=== PATIENT | female | born 1970 | race Caucasian/White ===

== ENCOUNTER 2016-12-25 08:41 | Emergency (ER) | payer MEDICARE, MEDICAID ==
[2016-12-25 09:06] VITALS: BP 157/74
--- NOTE | 2016-12-25 09:07 | UC ---
Ear Complaint HPI - HPI Summary HPI Summary: left ear pain gradual onset for past 2 weeks. Intermittent at first, now a constant pain. Slight drainage from left ear. Recent mild sinus congestion, no fevers. No trauma to ear. She also has a history of trigeminal neuralgia on this side, but that has been a different, lancinating pain whereas this current pain is dull and constant. - History of Current Complaint Chief Complaint: UCEar Stated Complaint: LEFT EAR PAIN Time Seen by Provider: 12/25/16 08:42 Hx Obtained From: Patient Hx Last Menstrual Period: 12/20/16 Onset/Duration: Gradual Onset, Lasting Weeks - 2 Severity Initially: Mild Severity Currently: Moderate Aggravating Factors: Nothing Alleviating Factors: Heat - Allergies/Home Medications Allergies/Adverse Reactions: Allergies Allergy/AdvReac Type Severity Reaction Status Date / Time environmental Allergy Eyes Uncoded 12/25/16 08:52 Itchy/Swollen/Red/Watery Home Medications: Home Medications Zolpidem TAB* [Ambien*] 5 mg PO BEDTIME PRN 12/25/16 [History Confirmed 12/25/16 ] traZODone TAB* [Desyrel TAB*] 50 mg PO BEDTIME PRN 12/25/16 [History Confirmed 12/25/16] PMH/Surg Hx/FS Hx/Imm Hx - Additional Past Medical History Additional PMH: trigeminal neuralgia Endocrine History Of: Denies: Diabetes, Thyroid Disease Cardiovascular History Of: Denies: Cardiac Disorders, Hypertension, Pacemaker/ICD Respiratory History Of: Denies: COPD, Asthma GI/ History Of: Denies: Ulcer - Surgical History Surgical History: Yes Surgery Procedure, Year, and Place: TONSILS A CHILD. GALLBLADDER. ESSURE PLACEMENT. ESSURE REMOVAL - Family History Known Family History: Positive: Hypertension - Social History Occupation: Disabled Lives: With Family Alcohol Use: Rare Substance Use Type: None Smoking Status (MU): Former Smoker Have You Smoked in the Last Year: No Review of Systems Constitutional: Negative Skin: Negative Eyes: Negative ENT: Ear Ache Respiratory: Negative Cardiovascular: Negative Gastrointestinal: Negative Genitourinary: Negative Motor: Negative Neurovascular: Negative Musculoskeletal: Negative Neurological: Negative Psychological: Negative All Other Systems Reviewed And Are Negative: Yes Physical Exam Triage Information Reviewed: Yes Appearance: Well-Appearing, No Pain Distress, Well-Nourished Vital Signs: Initial Vital Signs Temp 98 F 12/25/16 08:43 Pulse 72 12/25/16 08:43 Resp 18 12/25/16 08:43 BP 157/74 12/25/16 08:43 Pulse Ox 100 12/25/16 08:43 Vital Signs Reviewed: Yes Eye Exam: Normal ENT: Positive: Pharynx normal, TM dull, TM red - left side. Negative: Tonsillar swelling, Trismus, Muffled/hoarse voice Dental Exam: Normal Neck exam: Normal Respiratory Exam: Normal Cardiovascular Exam: Normal Musculoskeletal Exam: Normal Neurological Exam: Normal Psychological Exam: Normal Skin Exam: Normal Ear Complaint Course/Dx - Differential Dx/Diagnosis Differential Diagnosis/HQI/PQRI: Otitis Externa, Otitis Media, Trigeminal Nueralgia, URI Provider Diagnoses: left otitis media Discharge - Discharge Plan Condition: Stable Disposition: HOME Prescriptions: Fluconazole [Diflucan 150 MG (NF)] 150 mg PO ONCE PRN #2 tab PRN Reason: vaginal itching Sulfamethox/Trimethoprim DS* [Bactrim DS 800/160 TAB*] 1 tab PO BID #20 tab Patient Education Materials: Otitis Media (ED) Referrals: Esperanza Menon MD [Primary Care Provider] -
== END 2016-12-25 09:09 | disposition home or self-care (01) ==
LOC: UCCORT 08:41
DX: H66.92 Otitis media, unspecified, left ear (principal); Z87.891 Personal history of nicotine dependence
CPT/HCPCS: 99212; G0463

== ENCOUNTER 2017-04-04 08:28 | Emergency (ER) | payer MEDICARE, MEDICAID ==
[2017-04-04 08:48] VITALS: BP 140/76
--- NOTE | 2017-04-04 09:23 | UC ---
Ear Complaint HPI - HPI Summary HPI Summary: left ear pain for a few days. no trauma. no change in hearing. - History of Current Complaint Chief Complaint: UCEar Stated Complaint: LEFT EAR COMPLAINT Time Seen by Provider: 04/04/17 09:19 Hx Obtained From: Patient Jocelyn Last Menstrual Period: 03/08/17 Onset/Duration: Sudden Onset, Gradual Onset Severity Initially: Moderate Severity Currently: Moderate Associated Signs/Symptoms: Negative: Discharge, Hearing Loss, Trauma to Ear, Swelling @ Related History: Seasonal Allergies - Allergies/Home Medications Allergies/Adverse Reactions: Allergies Allergy/AdvReac Type Severity Reaction Status Date / Time environmental Allergy Eyes Uncoded 04/04/17 08:48 Itchy/Swollen/Red/Watery PMH/Surg Hx/FS Hx/Imm Hx Previously Healthy: No - recent left om. - Surgical History Surgical History: Yes Surgery Procedure, Year, and Place: TONSILS A CHILD. GALLBLADDER. ESSURE PLACEMENT. ESSURE REMOVAL - Family History Known Family History: Positive: Hypertension - Social History Alcohol Use: Occasionally Substance Use Type: None Smoking Status (MU): Never Smoked Tobacco Have You Smoked in the Last Year: No Review of Systems All Other Systems Reviewed And Are Negative: Yes Physical Exam Triage Information Reviewed: Yes Appearance: Well-Appearing, No Pain Distress, Well-Nourished Vital Signs: Initial Vital Signs Temp 97.9 F 04/04/17 08:44 Pulse 85 04/04/17 08:44 Resp 16 04/04/17 08:44 BP 140/76 04/04/17 08:44 Pulse Ox 97 04/04/17 08:44 Vital Signs Reviewed: Yes Eye Exam: Normal ENT Exam: Other - left tragus tender. There ismild left ear tenderness with speculum and canal is pink with mild swelling. ENT: Positive: Normal ENT inspection, TMs normal. Negative: TM bulging, TM dull , TM red, Tonsillar swelling, Tonsillar exudate, Trismus Neck exam: Normal Respiratory Exam: Normal Cardiovascular Exam: Normal Abdominal Exam: Normal Musculoskeletal Exam: Normal Neurological Exam: Normal Psychological Exam: Normal Ear Complaint Course/Dx - Differential Dx/Diagnosis Provider Diagnoses: left otitis externa. Discharge - Discharge Plan Condition: Stable Disposition: HOME Prescriptions: Ciproflox/Dexameth OTIC.SUSP* [Ciprodex OTIC.SUSP*] 2 drop .SEE ORDER BID #1 btl Patient Education Materials: Otitis Externa (ED) Referrals: Esperanza Menon MD [Primary Care Provider] - If Needed
== END 2017-04-04 09:30 | disposition home or self-care (01) ==
LOC: UCCORT 08:28
DX: H60.92 Unspecified otitis externa, left ear (principal)
CPT/HCPCS: 99212; G0463

== ENCOUNTER 2017-05-23 17:21 | Emergency (ER) | payer MEDICARE, MEDICAID ==
--- NOTE | 2017-05-23 19:30 | UC ---
Skin Complaint HPI - HPI Summary HPI Summary: Pt presents with c/o of "spider" bite to right forearm medial aspect. Pt reports that she woke this morning with pruritic, erythematous, "spider bite" to right mid, medial aspect of forearm. Pt was seen by her psychiatric provider who suggested that she was concerned about cellulitis. Pt states that she has been taking OTC benadryl and has some improvement in pruritis but worsening of erythema around "bite" - History of Current Complaint Chief Complaint: UCSkin Time Seen by Provider: 05/23/17 19:10 Stated Complaint: INSECT BITE Hx Obtained From: Patient Hx Last Menstrual Period: 05/05/17 ?: No Onset/Duration: Gradual Onset, Lasting Hours, Still Present, Worse Since - onset Skin Exposure Onset/Duration: Days Ago - 1 day Timing: Constant Onset Severity: Mild Current Severity: Moderate Location: Discrete - right medial aspect of mid forearm Character: Swelling - mild, Redness, Painful Aggravating: Touch Alleviating: Antihistamines Associated Signs & Symptoms: Positive: Tenderness Related History: Insect Bite/Sting - possible - Allergy/Home Medications Allergies/Adverse Reactions: Allergies Allergy/AdvReac Type Severity Reaction Status Date / Time environmental Allergy Eyes Uncoded 05/23/17 17:42 Itchy/Swollen/Red/Watery Review of Systems Constitutional: Negative Skin: Other - erythema, tenderness. Eyes: Negative ENT: Negative Respiratory: Negative Cardiovascular: Negative Gastrointestinal: Negative Genitourinary: Negative Motor: Negative Neurovascular: Negative Musculoskeletal: Edema - right mid forearm, slight swelling at insect bite site Neurological: Negative Psychological: Negative All Other Systems Reviewed And Are Negative: Yes PMH/Surg Hx/FS Hx/Imm Hx Previously Healthy: Yes Psychological History: Bipolar Disorder - Surgical History Surgical History: Yes Surgery Procedure, Year, and Place: TONSILS A CHILD. GALLBLADDER. ESSURE PLACEMENT. ESSURE REMOVAL - Family History Known Family History: Positive: Hypertension - Social History Lives: With Family Alcohol Use: Occasionally Substance Use Type: None Smoking Status (MU): Never Smoked Tobacco Have You Smoked in the Last Year: No Physical Exam Triage Information Reviewed: Yes Appearance: Well-Appearing Vital Signs: Initial Vital Signs Temp 98.4 F 05/23/17 17:37 Pulse 71 05/23/17 17:37 Resp 14 05/23/17 17:37 BP 132/66 05/23/17 17:37 Pulse Ox 99 05/23/17 17:37 Vital Signs Reviewed: Yes Eye Exam: Normal ENT Exam: Normal Dental Exam: Normal Neck exam: Normal Respiratory Exam: Normal Cardiovascular Exam: Normal Abdominal Exam: Normal Abdomen Description: Positive: Nontender Musculoskeletal Exam: Other Musculoskeletal: Positive: Other: - mild swelling of right forearm Neurological Exam: Normal Psychological Exam: Normal Skin Exam: Other - large 7 cm erytheamtous circular area on right medial forearm. thre clustered small fluid filled vessicles. slight tenderness with palpation Course/Dx - Course Course Of Treatment: I discussed with the pt the need to monitor for worsening signs o infection sucha as increased erythema, tenderness, fever, chills, pururlent discharge. I [place] the borders of the erythematous area with a surgical marker for a point of reference. - Differential Diagnoses - Skin Complaint Differential Diagnoses: Cellulitis - Diagnoses Provider Diagnoses: cellulitis Discharge - Discharge Plan Condition: Stable Disposition: HOME Prescriptions: Cephalexin CAP* [Keflex 500 CAP*] 500 mg PO Q12H #20 cap Patient Education Materials: Cellulitis (ED), Hypertension (ED) Referrals: Esperanza Menon MD [Primary Care Provider] - If Needed Additional Instructions: Please follow up with your PCP or return to the clinic as needed. Please monitor your diagnose of cellulitis for worsening redness, tenderness, discharge or fever and chills. Please was noted at today's visit your blood pressure was elevated. Please follow up with your PCP as soon as possible.
[2017-05-23] MEDS ORDERED: Cephalexin CAP* 500 MG PO ONE (19:34)
[2017-05-23 19:35] VITALS: BP 180/80
== END 2017-05-23 19:44 | disposition home or self-care (01) ==
LOC: UCCORT 17:21
DX: L03.113 Cellulitis of right upper limb (principal); F31.9 Bipolar disorder, unspecified; Z90.49 Acquired absence of other specified parts of digestive tract
CPT/HCPCS: 99212; A9270-GY; G0463

== ENCOUNTER 2018-10-10 10:51 | Emergency (ER) | payer MEDICARE, MEDICAID ==
[2018-10-10 12:18] VITALS: BP 150/83
--- NOTE | 2018-10-10 13:14 | UC ---
Ear Complaint HPI - HPI Summary HPI Summary: Patient is a 48-year-old female that presents here with bilateral ear discomfort. Mild URI symptoms. Her symptoms of lasted about 4 days. She has not been febrile. - History of Current Complaint Chief Complaint: UCRespiratory Stated Complaint: SINUS/LT EAR CONCERN Time Seen by Provider: 10/10/18 12:12 Hx Obtained From: Patient Hx Last Menstrual Period: 10/04 Onset/Duration: Gradual Onset Severity Initially: Mild Severity Currently: Moderate Pain Intensity: 4 Pain Scale Used: 0-10 Numeric Alleviating Factors: Nothing Associated Signs/Symptoms: Positive: URI Symptoms - Allergies/Home Medications Allergies/Adverse Reactions: Allergies Allergy/AdvReac Type Severity Reaction Status Date / Time environmental Allergy Eyes Uncoded 10/10/18 12:18 Itchy/Swollen/Red/Watery Home Medications: Home Medications Guaifen/Phenyleph/Acetaminophn [Tylenol Sinus Severe Caplet] 2 each PO BID PRN 10/10/18 [History Confirmed 10/10/18] PMH/Surg Hx/FS Hx/Imm Hx Previously Healthy: Yes Psychological History: Bipolar Disorder - Surgical History Surgical History: Yes Surgery Procedure, Year, and Place: TONSILS A CHILD. GALLBLADDER. ESSURE PLACEMENT. ESSURE REMOVAL - Family History Known Family History: Positive: Hypertension - Social History Alcohol Use: Occasionally Substance Use Type: None Smoking Status (MU): Former Smoker Have You Smoked in the Last Year: No Review of Systems All Other Systems Reviewed And Are Negative: Yes Constitutional: Positive: Negative Skin: Positive: Negative Eyes: Positive: Negative ENT: Positive: Ear Ache, Nasal Discharge, Sinus Congestion Respiratory: Positive: Negative Cardiovascular: Positive: Negative Gastrointestinal: Positive: Negative Genitourinary: Positive: Negative Motor: Positive: Negative Neurovascular: Positive: Negative Musculoskeletal: Positive: Negative Neurological: Positive: Negative Psychological: Positive: Negative Physical Exam Triage Information Reviewed: Yes Appearance: Well-Appearing, No Pain Distress, Well-Nourished Vital Signs: Initial Vital Signs Temp 99.2 F 10/10/18 12:11 Pulse 79 10/10/18 12:11 Resp 18 10/10/18 12:11 BP 150/83 10/10/18 12:11 Pulse Ox 100 10/10/18 12:11 Vital Signs Reviewed: Yes Eyes: Positive: Conjunctiva Clear ENT: Positive: Hearing grossly normal, Nasal congestion, Nasal drainage, TM bulging. Negative: Tonsillar swelling, Tonsillar exudate, Dental tenderness, Sinus tenderness Dental Exam: Normal Neck: Positive: Supple, Nontender, No Lymphadenopathy Respiratory: Positive: Lungs clear, Normal breath sounds, No respiratory distress Cardiovascular: Positive: RRR Musculoskeletal: Positive: ROM Intact, No Edema Neurological: Positive: Alert Psychological Exam: Normal Skin Exam: Normal Ear Complaint Course/Dx - Differential Dx/Diagnosis Provider Diagnosis: Acute serous otitis media of both ears without rupture, Viral URI Discharge - Sign-Out/Discharge Documenting (check all that apply): Patient Departure All imaging exams completed and their final reports reviewed: No Studies - Discharge Plan Condition: Stable Disposition: HOME Prescriptions: Fluticasone NASAL SPRAY 50MCG* [Flonase NASAL SPRAY 50MCG*] 2 spray BOTH NARES BID #1 btl Patient Education Materials: Serous Otitis Media (ED) Referrals: Esperanza Menon MD [Primary Care Provider] - - Billing Disposition and Condition Condition: STABLE Disposition: Home
== END 2018-10-10 13:26 | disposition home or self-care (01) ==
LOC: UCCORT 10:51
DX: H65.03 Acute serous otitis media, bilateral (principal); J06.9 Acute upper respiratory infection, unspecified; Z87.891 Personal history of nicotine dependence
CPT/HCPCS: 99212; G0463